=== PATIENT | female | born 1965 | race African-American/Black ===

== ENCOUNTER 2023-04-07 17:13 | Emergency (ER) | payer BC, OTHER ==
[2023-04-07] MEDS ORDERED: Ibuprofen 200 MG TAB ONE (18:17)
[2023-04-07] MEDS ORDERED: Ondansetron ODT 4 MG TAB ONE (18:17)
[2023-04-07] MEDS ORDERED: Dexamethasone 4 MG TAB ONE (18:17)
[2023-04-07] MEDS ORDERED: Ipratropium/Albuterol 3 ML NEB ONE (18:21)
[2023-04-07 18:47] LABS: SARS-CoV-2 NAA Rapid Test Not Detected (NotDetected)
== END 2023-04-07 19:48 | disposition home or self-care (01) ==
LOC: EDBD 17:13 → CSHERS 17:13
DX: J45.901 Unspecified asthma with (acute) exacerbation (principal); B34.9 Viral infection, unspecified; Z20.822 Contact with and (suspected) exposure to COVID-19
CPT/HCPCS: 71045; 93005; 94640; 94760; J7620; J8540; Q0162